=== PATIENT | female | born 1970 | race Caucasian/White ===

== ENCOUNTER → 2018-02-27 | Outpatient (CLI) | payer OTHER | LOC: M.RAD 15:41 | DX: Z12.31 Encounter for screening mammogram for malignant neoplasm of breast (principal) ==

== ENCOUNTER 2019-01-05 06:48 | Emergency (ER) | payer OTHER ==
[~2019-01-05] VITALS: Ht 175.3 cm; Wt 94.3 kg
[2019-01-05] MEDS ORDERED: SYNTHROID50 MCG PO (06:55)
[2019-01-05 07:21] LABS: ABSOLUTE EOSINOPHILS 0.1 thou/uL (0.0-0.7); ABSOLUTE LYMPHOCYTES 1.4 thou/uL (0.8-5.3); ABSOLUTE MONOCYTES 0.3 thou/uL (0.0-1.2); ABSOLUTE NEUTROPHILS 2.4 thou/uL (1.6-8.1); BASOPHILS 0.7 %; EOSINOPHILS 1.3 %; HEMATOCRIT 38.5 % (37.0-47.0); HEMOGLOBIN 13.5 gm/dL (12.0-15.0); LYMPHOCYTES 32.9 %; MCH 31.5 pg (26.0-34.0); MCHC 34.9 g/dL (28.0-37.0); MCV 90.3 fL (80.0-100.0); MONOCYTES 6.6 %; MPV 8.6 fl. (7.2-11.1); NUCLEATED RBCS 0 /100WBC; PLATELET COUNT* 227 thou/uL (150-400); POLYS 58.5 %; RBC 4.27 mil/uL (4.20-5.00); RDW-CV 12.5 % (10.5-14.5); WBC 4.2 thou/uL (4.0-11.0)
[2019-01-05 07:29] LABS: ANION GAP 11 mmol/L (7-16); BUN 13 mg/dL (7-18); CALCIUM 9.1 mg/dL (8.5-10.1); CHLORIDE 103 mmol/L (98-107); CO2 26 mmol/L (21-32); CREATININE 0.7 mg/dL (0.6-1.3); GLUCOSE 96 mg/dL (70-99); POTASSIUM 3.8 mmol/L (3.5-5.1); SODIUM 140 mmol/L (136-145)
[2019-01-05 07:42] LABS: ALBUMIN 3.8 g/dL (3.4-5.0); ALKALINE PHOSPHATASE 77 U/L (46-116); LIPASE 118 U/L (73-393); MAGNESIUM 2.1 mg/dL (1.8-2.4); NT-PRO BRAIN NAT PEPTIDE 177 pg/mL (<300); SGOT 23 U/L (15-37); SGPT 25 U/L (30-65); TOTAL BILIRUBIN 0.6 mg/dL (<0.1-1.0); TOTAL PROTEIN 7.4 g/dL (6.4-8.2); TROPONIN-I LEVEL <0.06 ng/mL (<0.06)
[2019-01-05 10:08] VITALS: BP 105/64
--- NOTE | 2019-01-05 10:32 | EKG ---
[place] [address] ELECTROCARDIOGRAM REPORT Name: NICOLE JAY Room: [facility]#: [id number] Admission: 01/05/19 Attend Phys: Discharge: 01/05/19 Date of : 70 Report #: [id number] THIS REPORT FOR: //name// [facility] ED Test Date: 2019-01-05 Test Time: 06:51:57 Pat Name: NICOLE JAY Department: Room: Gender: F [employer] Operator: [place] : 1970 Requested By: Aric Chery Order Number: [id number] MD: Papa Felipe Measurements Intervals [place] Rate: 99 P: 66 [place]: 160 QRS: 39 QRSD: 98 T: 46 QT: 358 QTc: 460 Interpretive Statements Sinus rhythm artifact noted RSR' in V1 or V2, probably normal variant Minimal ST depression, anterolateral leads Baseline wander in lead(s) V1,V3,V4,V5,V6 No previous ECG available for comparison Electronically Signed On 01-05-2019 10:32:14 CDT by Papa Felipe [email or web address] <ELECTRONICALLY SIGNED> By: Papa Felipe MD, [facility] 01/05/19 [phone] [id number] Papa Felipe MD, [facility] /EPI
--- NOTE | 2019-01-05 10:34 | EKG ---
[place] [address] ELECTROCARDIOGRAM REPORT Name: NICOLE JAY Room: [facility]#: [id number] Admission: 01/05/19 Attend Phys: Discharge: 01/05/19 Date of : 70 Report #: [id number] THIS REPORT FOR: //name// [facility] ED Test Date: 2019-01-05 Test Time: 09:14:56 Pat Name: NICOLE JAY Department: Room: Gender: F Director Of Workforce Development: : 1970 Requested By: Aric Chery Order Number: [id number] MD: Papa Felipe Measurements Intervals [place] Rate: 65 P: 37 [place]: 128 QRS: 46 QRSD: 95 T: 37 QT: 409 QTc: 426 Interpretive Statements Sinus rhythm Artifact in lead(s) I,II,aVR,aVL,aVF Electronically Signed On 01-05-2019 10:34:29 CDT by Papa Felipe [email or web address] <ELECTRONICALLY SIGNED> By: Papa Felipe MD, [facility] 01/05/19 1034 3 Papa Felipe MD, [facility] /EPI
== END 2019-01-05 10:09 | disposition home or self-care (01) ==
LOC: M.ERS 06:48
PROVIDERS: Emergency Medicine Emergency Medical Services
DX: R07.89 Other chest pain (principal); Z98.890 Other specified postprocedural states

== ENCOUNTER → 2019-03-18 | Outpatient (CLI) | payer OTHER ==
[~2019-03-18] MED LIST: SYNTHROID50 MCG PO
== END ==
LOC: M.RAD 09:29
DX: Z12.31 Encounter for screening mammogram for malignant neoplasm of breast (principal)

== ENCOUNTER → 2020-06-01 | Outpatient (CLI) | payer BC | LOC: M.RAD 07:00 | PROVIDERS: ATTEND Family Medicine | DX: Z12.31 Encounter for screening mammogram for malignant neoplasm of breast (principal) ==